=== PATIENT | male | born 1955 | race Caucasian/White ===

== ENCOUNTER 2019-03-15 06:38 | Day surgery (SDC) | payer MEDICARE, OTHER ==
[2019-03-15] MEDS ORDERED: PROPOFOL 20 ML (07:59)
[2019-03-15] MEDS ORDERED: MEPERIDINE 25 MG INJ IV (08:00)
[2019-03-15] MEDS ORDERED: ONDANSETRON 4 MG INJ IV (08:00)
[2019-03-15] MEDS ORDERED: IPRATROPIUM (NEB) 0.5 MG/2.5 ML AMP HHN (08:00)
[2019-03-15] MEDS ORDERED: hydrALAzine 20 MG INJ IV (08:00)
[2019-03-15] MEDS ORDERED: FENTAnyl 50 MCG/ML VIAL IV ×3 (08:00)
[2019-03-15] MEDS ORDERED: EPHEDrine 25 MG/5 ML SYG IV (08:00)
[2019-03-15] MEDS ORDERED: DIPHENHYDRAMINE 50 MG INJ IV (08:00)
[2019-03-15] MEDS ORDERED: LIDOCAINE 100 MG SYRINGE (08:00)
[2019-03-15] MEDS ORDERED: OXYCODONE/ACETAMINOPHEN (5/325) TAB PO ×2 (08:00)
[2019-03-15] MEDS ORDERED: HYDROmorphONE 1 MG/5 ML IV SYRINGE IV ×3 (08:00)
[2019-03-15] MEDS ORDERED: ALBUTEROL 0.083% (NEB) 2.5 MG/3 ML AMP HHN (08:00)
[2019-03-15] MEDS ORDERED: LABETALOL HCL 20MG INJ IV (08:00)
== END 2019-03-15 11:37 | disposition home or self-care (01) ==
LOC: GIL 06:38
DX: Z12.11 Encounter for screening for malignant neoplasm of colon (principal); D12.5 Benign neoplasm of sigmoid colon; K64.8 Other hemorrhoids; I10 Essential (primary) hypertension; E78.5 Hyperlipidemia, unspecified
CPT/HCPCS: 45380; 88305